=== PATIENT | female | born 1990 | race Caucasian/White ===

== ENCOUNTER 2018-05-05 22:35 | Emergency (ER) | payer SELFPAY ==
[~2018-05-05] VITALS: Ht 157.5 cm; Wt 59.2 kg
[2018-05-05 22:44] VITALS: Ht 157.5 cm; Wt 59.2 kg
[2018-05-05] MEDS ORDERED: ACET1TAB40 PO (23:07)
--- NOTE | 2018-05-05 23:10 | ERD ---
ER Documentation Chief Complaint Chief Complaint bleeding left labia x 30 min ago while doing waxing HPI 28-year-old female presents with bleeding from her vagina after waxing today. She feels that she accidentally caused a laceration while pulling out the wax. She had some bleeding which is slowed down. She denies any additional symptoms. ROS All systems reviewed and are negative except as per history of present illness. Medications Home Meds Active Scripts Acetaminophen with Codeine (Acetaminophen-Cod #3 Tablet) 1 Each Tablet, 1 TAB PO Q6H PRN for PAIN, #7 TAB Prov:ZAIRA LITTLE MD 05/05/18 Allergies Allergies: Coded Allergies: No Known Drug Allergies (Verified Allergy, Unknown, 05/05/18) FmHx Family History: No diabetes, No coronary disease, No other Physical Exam Vitals Vital Signs Date Temp Pulse Resp B/P (MAP) Pulse Ox O2 O2 Flow FiO2 Time Delivery Rate 05/05/18 98.8 77 18 127/74 100 22:44 (91) Physical Exam Const: No acute distress Head: Atraumatic Eyes: Normal Conjunctiva ENT: Normal External Ears, Nose and Mouth. Neck: Full range of motion. No meningismus. Resp: Clear to auscultation bilaterally Cardio: Regular rate and rhythm, no murmurs Abd: Soft, non tender, non distended. Normal bowel sounds. Vaginal exam with grave digger shows a small tear just lateral to the left labia minora. There is no active bleeding. Wound is spontaneously closed Skin: No petechiae or rashes Back: No midline or flank tenderness Ext: No cyanosis, or edema Neur: Awake and alert Psych: Normal Mood and Affect Procedures/MDM Patient presents with a superficial tear to the vaginal introitus just lateral to the labia minora. There is no involvement of the urethra or perineum. There is no significant active bleeding. Wound was dressed with Neosporin and patient will be discharged home with recommendations for barrier protection such as a and D ointment or Neosporin ointment, time and allow wound to heal. The wound does not appear to need stitches. She should return for persistent bleeding, redness, fevers, new worsening symptoms. She will be given a short course of Tylenol 3 for pain. Departure Diagnosis: Primary Impression: Vaginal laceration Vaginal laceration type: non-obstetric Perineal laceration presence: without perineal laceration Encounter type: initial encounter Foreign body presence: without foreign body Qualified Codes: S31.41XA - Laceration without foreign body of vagina and vulva, initial encounter Condition: Stable Patient Instructions: Vaginal Tear (Non-Obstetric) Additional Instructions: Wound should heal without sutures or further treatment. Recommend Neosporin or a and D ointment to keep area moist and act as a barrier. Recheck for persistent bleeding, redness, new worsening symptoms. ZAIRA LITTLE MD May 05, 2018 23:10
== END 2018-05-05 23:32 | disposition home or self-care (01) ==
LOC: FTE 22:35
DX: S31.41XA Laceration without foreign body of vagina and vulva, initial encounter (principal); X58.XXXA Exposure to other specified factors, initial encounter; Y92.9 Unspecified place or not applicable
CPT/HCPCS: 99284